=== PATIENT | female | born 1985 | race Caucasian/White ===

== ENCOUNTER → 2022-10-09 15:08 | Outpatient (CLI) | payer BC, SELFPAY ==
--- NOTE | ~2022-10-09 | US_ITS ---
Pelvic ultrasound. Clinical History: First trimester , assess viability Technique: Realtime transabdominal and transvaginal scanning of the pelvis was performed. Color flow Doppler and Doppler spectral analysis were performed. Findings: The uterus is anteverted. The endometrial stripe has a thickness of approximately 15 mm, a nd is somewhat heterogeneous with suggestion of small cystic spaces. Questionable gestational sac whi ch is poorly imaged, related to depth and patient body habitus, with this possible gestational sac ec centrically located towards the left cornu. No definite visible pole or yolk sac. The right ovary is not visualized. No significant right ovarian or adnexal mass is seen. The left ovary measures 3.3 x 2.3 x 2.4 cm. Left ovarian corpus luteal cyst noted. There is no evidence of free fluid in the cul de sac. Impression: Questionable visualization of a gestational sac towards left cornu, which is poorly visualized due to patient body habitus and depth of the finding. No definite visible pole or yolk sac. The eccen tric location raises the possibility of interstitial ectopic . Correlation with beta hCG lev el recommended. Short-term follow-up ultrasound should be strongly considered both to reassess this q uestion will gestational sac, or assess for development is more typically located gestational sac. MR could also be considered as a problem solving tool to evaluate for precise location of gestational s ac. Somewhat prominent endometrial stripe with suggestion of small cystic spaces. In the setting of posit graciela test, gestational trophoblastic disease is also a diagnostic consideration. Again, joel elation with beta hCG level and trending is advised. Again, I would have a very low threshold for fol low-up examination. Reviewed, dictated and finalized at location M. [facility] SET UP OPERATOR Impression: Questionable visualization of a gestational sac towards left cornu, which is [place] visualized due to patient body habitus and depth of the finding. No defini te visible pole or yolk sac. The eccentric location raises the possibilit y of interstitial ectopic . Correlation with beta hCG level recommende d. Short-term follow-up ultrasound should be strongly considered both to reasse ss this question will gestational sac, or assess for development is more typica lly located gestational sac. MR could also be considered as a problem solving t ool to evaluate for precise location of gestational sac. Somewhat prominent endometrial stripe with suggestion of small cystic spaces. I n the setting of positive test, gestational trophoblastic disease is also a diagnostic consideration. Again, correlation with beta hCG level and maximino nding is advised. Again, I would have a very low threshold for follow-up examin ation.
== END ==
PROVIDERS: PCP Obstetrics & Gynecology Gynecology; Visit Provider Obstetrics & Gynecology Gynecology
DX: O36.80X0 Pregnancy with inconclusive fetal viability, not applicable or unspecified (principal); Z3A.00 Weeks of gestation of pregnancy not specified
CPT/HCPCS: 76817

== ENCOUNTER 2024-12-28 19:25 | Emergency (ER) | payer OTHER, SELFPAY ==
--- NOTE | 2024-12-28 19:28 | ED_ITS ---
HPI - URI/Sore Throat General Chief Complaint: Upper Respiratory Infection Stated Complaint: flu like symptoms Time Seen by Provider: 12/28/24 19:27 Source: patient Mode of arrival: ambulatory Limitations: no limitations History of Present Illness HPI Narrative: Kavitha is a 39 year old female patient presenting to the clinic today with c/o flu like symptoms x1 day. She reports she has got fever, cough, chills, body aches, headache, congestion, fatigue, and nausea. Daughter has similar symptoms and was seen by the sound effects manager today. MD elicited complaint: cough and nasal congestion Related Data Home Medications ?Medication ?Instructions ?Recorded ?Confirmed ?Last Taken ?Type risankizumab-rzaa 150 mg/mL mg subcut 12/28/24 Unknown History subcutaneous pen injector (Skyrizi) Allergies Allergy/AdvReac Type Severity Reaction Status Date / Time sulfanilamide Allergy Intermediate Rash Verified 12/28/24 19:31 Sulfa (Sulfonamide Allergy Mild Rash Verified 12/28/24 19:31 Antibiotics) Review of Systems Review of Systems: Pertinent positives per HPI. Patient denies any rash, visual changes, dizziness, shortness of breath, chest pain, palpitations, vomiting, diarrhea, constipation, abdominal pain, or any urinary issues. [facility] Family History Family History Mother Patient's mother is in good health Father Patient's father is in good health Sibling Patient's sister is in good health Social History Social History Alcohol intake: never Comments At the time of my signature, I reviewed and agree with the nursing past medical, surgical, social, and family history. There is no relevant family history pertinent to the patient complaint. Exam Narrative: General: Well-developed, well nourished, acutely ill appearing. Head: Normocephalic, atraumatic Eyes: Pupils equally round and reactive to light bilaterally, EOM intact, sclera and conjunctive clear, no discharge, lids normal Ears: TMs intact and clear, ear canals clear, no drainage, grossly hearing normal. Nose: Nares patent, clear nasal discharge, no inflammation, no sinus tenderness. Mouth: Oral pharynx without lesions or masses, good dentition, MMM. Postnasal drip Neck: Supple, trachea midline, no enlargement of anterior or posterior cervical nodes, no thyroid masses or goiter palpable. Cardio: Regular rate and rhythm, s1 and s2 normal, no murmur appreciated. Resp: Clear to auscultation bilaterally, no rhonchi, rales, wheezing or rubs Course Course Emergency Course: Portions of this record may have been created with voice recognition software. Level of Care: Express Care Visit Vital Signs Vital signs: Vital Signs Temperature 36.8 C 12/28/24 19:41 Pulse Rate 113 H 12/28/24 19:41 Respiratory Rate 16 12/28/24 19:41 Blood Pressure 99/58 L 12/28/24 19:41 Pulse Oximetry 99 12/28/24 19:41 Temperature 36.8 C 12/28/24 19:41 Pulse Rate 113 H 12/28/24 19:41 Respiratory Rate 16 12/28/24 19:41 Blood Pressure 99/58 L 12/28/24 19:41 Pulse Oximetry 99 12/28/24 19:41 Vital signs reviewed MDM - URI/Sore Throat MDM Narrative Medical decision making narrative: At the time of visit patient is resting comfortably on the exam table. Patient appears to be nontoxic. Labs: Influenza testing was positive in the clinic today. Plan: I suspect patient has influenza. Prescription for Tamiflu and Zofran was sent to the pharmacy. Supportive measures were discussed with the patient and they voiced understanding discharge instructions and agrees to treatment plan. Return precautions reviewed Differential Diagnosis Differential diagnosis: Likely upper respiratory infection, otitis media, sinusitis, viral infection, bronchitis, influenza, pharyngitis and other (COVID) Discharge Plan Discharge Clinical Impression: Influenza A Patient Disposition: Home, Self-Care Condition: Stable Instructions: Antibiotic Form, Influenza (ED) Additional Instructions: Take prescription medications only as prescribed-ondansetron and Tamiflu Increase fluids and stay well hydrated Tylenol/motrin for pain/fever Flonase and OTC antihistamines as directed Vicks vapor rub to open sinuses Sinus rinses for congestion Cepacol spray, cough drops, throat lozenges, warm tea with honey/lemon, gargle salt water to soothe throat BRAT diet for diarrhea Clear liquids x 24 hours then advance as tolerated for nausea/vomiting Go to the ED if you develop a worsening in your condition- high fever not controlled by Tylenol or Motrin, dehydration, weakness, lethargy, shortness of breath, or chest pain. Follow up with your PCP in 3-5 days if symptoms persist. Patient Language: [place] Prescriptions: New ondansetron 4 mg tablet,disintegrating 4 mg PO Q6H PRN (Reason: nausea and vomiting) 3 Days Qty: 12 0RF oseltamivir [Tamiflu] 75 mg capsule 75 mg PO BID 5 Days Qty: 10 0RF No Action Skyrizi 150 mg/mL pen injector SUBCUT Follow-up/Referrals: Carlitos,SETH Thomson [Primary Care Provider] - Stand Alone Forms: Work/School Release IP Time of Disposition: 19:51 Quality NIHSS Nursing Documentation ED NIHSS nursing documentation: reviewed/agree
[2024-12-28 19:41] VITALS: BP 99/58; PULSE 113; RESP 16; TEMP 36.8; O2SAT 99
[2024-12-28 19:56] LABS: EDINFLUASCREEN Positive (Negative); EDINFLUBSCREEN Negative (Negative)
== END 2024-12-28 19:56 | disposition home or self-care (01) ==
PROVIDERS: Emergency Provider Nurse Practitioner Family; PCP Physician Assistant
DX: J10.1 Influenza due to other identified influenza virus with other respiratory manifestations (principal)
CPT/HCPCS: 87804; 99203; G0463